=== PATIENT | female | born 1975 | race Caucasian/White ===

== ENCOUNTER 2016-05-07 14:16 | Emergency (ER) | payer MEDICAID ==
[2016-05-07 14:19] VITALS: BP 110/61; PULSE 92; RESP 12; TEMP 97.8; O2SAT 96
--- NOTE | 2016-05-07 17:46 | PD ---
HPI Chief Complaint: Gliding [employer] In[employer] Problem/Complaint Time Seen by Provider: 17:38 Travel History International Travel<30 days: No Contact w/Intl Traveler<30days: No Traveled to known affect area: No History of Present Illness HPI 40-year-old female presents for evaluation. She reports that 3 weeks ago she was treated with a seven-day course of antibiotics for urinary tract infection. 2 weeks ago she developed a white vaginal discharge and some itchiness. She endorses little bit of suprapubic discomfort. The dysuria has resolved. No nausea or vomiting, flank pain, fevers or chills. She is only sexually active with her of 22 years. No other complaints. PFSH Past Medical History Medical History: Denies Significant Hx ?: Unknown LMP: 03/26/16 Social History Alcohol Use: No Tobacco Use: No Substance Use: No Allergies-Medications (Allergen,Severity, Reaction): Coded Allergies: No Known Allergies (Unverified , 05/07/16) Reported Meds & Prescriptions Reported Meds & Active Scripts Active Fluconazole 150 Mg Tab 150 Mg PO ONCE Macrobid (Nitrofurantoin Monoh/Nitrofur Macro) 100 Mg Cap 100 Mg PO BID 7 Days Review of Systems Except as stated in HPI: all other systems reviewed are Neg Physical Exam Narrative GENERAL: Well-nourished female in no acute distress SKIN: Warm and dry. HEAD: Atraumatic. Normocephalic. EYES: Pupils equal and round. No scleral icterus. No injection or drainage. ENT: No nasal bleeding or discharge. Mucous membranes pink and moist. NECK: Trachea midline. No JVD. CARDIOVASCULAR: Regular rate and rhythm. No murmur appreciated. RESPIRATORY: No accessory muscle use. Clear to auscultation. Breath sounds equal bilaterally. GASTROINTESTINAL: Abdomen soft, non-tender, nondistended. Hepatic and splenic margins not palpable. Pelvic examination performed in the presence of a female nurse: There is some white vaginal discharge noted. No abnormal cervical lesions. No cervical motion tenderness or adnexal tenderness, no palpable masses. MUSCULOSKELETAL: No obvious deformities. No clubbing. No cyanosis. No edema. NEUROLOGICAL: Awake and alert. No obvious cranial nerve deficits. Motor grossly within normal limits. Normal speech. Data Data Last Documented VS Vital Signs Date Time Temp Pulse Resp B/P Pulse Ox O2 Delivery O2 Flow Rate FiO2 05/07/16 14:19 97.8 92 12 110/61 96 Orders Wet Prep Profile (05/07/16 17:02) Ua Includes Microscopic (05/07/16 17:02) Ed Urine Pregnancytest Poc (05/07/16 17:44) Urine Culture (05/07/16 18:52) ^ Other Nursing Orders (05/07/16 18:52) Labs Laboratory Tests Test 05/07/16 05/07/16 17:55 18:00 Urine Color YELLOW Urine Turbidity HAZY Urine pH 6.5 Urine Specific [place] 1.018 Urine Protein TRACE mg/dL Urine Glucose (UA) NEG mg/dL Urine Ketones NEG mg/dL Urine Occult Blood NEG Urine Nitrite NEG Urine Bilirubin NEG Urine Urobilinogen LESS THAN 2.0 MG/DL Urine Leukocyte Esterase LARGE Urine RBC 1 /hpf Urine WBC 14 /hpf Urine Squamous Epithelial 16 /hpf Cells Urine Bacteria OCC /hpf Urine Mucus FEW /lpf Clue Cells (Wet Prep) NONE SEEN Vaginal Trichomonas (Wet Prep) NONE SEEN Vaginal Yeast (Wet Prep) NONE SEEN MDM Medical Decision Making Medical Screen Exam Complete: Yes Emergency Medical Condition: Yes Medical Record Reviewed: Yes Differential Diagnosis Vaginitis, bacterial vaginosis, trichomoniasis, cervicitis, pelvic inflammatory disease, cystitis Narrative Course 40-year-old female who says that she was treated for urinary tract infection 3 weeks ago presents now with 2 weeks of vaginal discharge and itching. Urinalysis reveals leukocytes and is suggestive of a persisting urinary tract infection. She is being given a prescription for Macrobid. Her symptoms and history are suggestive of fungal vaginitis and although she has a negative wet prep she is being given a prescription for fluconazole. She is stable for discharge. Diagnosis Primary Impression: Urinary tract infection Qualified Code: N30.00 - Acute cystitis without hematuria Additional Impression: Vaginal discharge Additional Instructions: Medication as prescribed. Follow-up with primary care. Return for any emergent medical conditions. Med/Other Pt SpecificInfo: Prescription(s) given Scripts Fluconazole 150 Mg [id number] Mg PO ONCE #1 TAB Ref 0 Prov:Idalia Velazquez DO 05/07/16 Nitrofurantoin Monohydrate Macrocrystals (Macrobid)100 Mg [id number] Mg PO BID 7 Days Ref 0 Prov:Idalia Velazquez DO 05/07/16 Disposition: 01 DISCHARGE HOME Condition: Stable Artemio Alexander May 07, 2016 17:46
[2016-05-07 18:16] LABS: BACTERIA, URINE OCC /hpf; BLOOD, URINE NEG (NEG); GLUCOSE,URINE NEG (NEG); KETONE, URINE NEG (NEG); MUCUS URINE FEW /lpf (OCC); NITRITE,URINE NEG (NEG); PH, URINE 6.5 (5.0-8.5); SQUAMOUS EPITHELIAL CELL URINE 16 /hpf (0-5); URINE COLOR YELLOW (YELLW/STRAW)
[2016-05-07] MEDS ORDERED: FLUC150T PO (18:53)
[2016-05-07] MEDS ORDERED: MACR100C2 PO (18:53)
[2016-05-08 03:53] LABS: CHLAMYDIA PCR NOT DETECTED (NOT DETECT); NEISSERIA PCR NOT DETECTED (NOT DETECT)
== END 2016-05-07 19:24 | disposition home or self-care (01) ==
LOC: NEPE 14:16
DX: N39.0 Urinary tract infection, site not specified (principal); B96.89 Other specified bacterial agents as the cause of diseases classified elsewhere
CPT/HCPCS: 81001; 84703; 87086; 87210; 87491; 87591; 99283